=== PATIENT | female | born 1955 | race Caucasian/White ===

== ENCOUNTER 2016-12-11 10:26 | Emergency (ER) | payer MEDICARE, MEDICAID ==
[~2016-12-11] VITALS: Ht 170.1 cm; Wt 104.3 kg
[~2016-12-11 10:26] MED LIST: AMOXIL500 MG PO; ATIVAN0.5 MG PO; BENTYL10 MG PO; CIPRO250 MG PO; DOS PO; FLAGYL500 MG PO; LEVAQUIN750 MG PO; LOMOTIL 0.025 M1 TA1 PO; NORVASC5 MG PO; OXYBUTYNIN CHLOR5 M1 PO; PAXIL20 MG PO; PERCOCET 325 MG1 TA2; PERCOCET 325 MG1 TA7 PO; PRILOSEC OTC20 MG PO; PRILOSEC10 MG PO; PRILOSEC20 M1 PO; ROPINIROLE HYDRO1 MG PO; SYNTHROID,LEVO50 MCG; SYNTHROID,LEVO50 MCG PO; SYNTHROID,LEVO75 MCG; SYNTHROID,LEVO75 MCG PO; Synthroid,Lev150 MCG PO; ULTRAM50 MG PO; VICODIN 5/500 505 MG PO; ZANTAC150 MG PO; ZOFRAN ODT4 MG SL; ZOFRAN4 MG PO; ZOLOFT25 MG PO; Zofran4 MG PO; [UNRECOGNIZED DRUG - OTHER] PO; [UNRECOGNIZED DRUG - OTHER] PO
[2016-12-11 11:27] LABS: BASO % 0.4 % (0.0-1.0); EOS # 0.1 10*3/uL (0.0-0.4); EOS % 1.2 % (1.0-4.0); HEMATOCRIT 44.4 % (37.0-47.0); HEMOGLOBIN 15.2 g/dl (12.0-16.0); LYMPH # 1.5 10*3/uL (1.3-4.4); MEAN CELL VOLUME 96.5 fl (81.0-99.0); MEAN CORPUSCULAR HGB CONC 34.2 g/dl (33.0-37.0); MEAN PLATELET VOLUME 9.1 fl (9.6-12.3); MONO # 0.8 10*3/uL (0.1-1.0); MONO % 8.8 % (3.0-9.0); NEUT # 6.8 10*3/uL (2.3-7.9); NEUT % 73.3 % (47.0-73.0); PLATELET COUNT AUTOMATED 215 10*3/uL (130-400); RED CELL DISTRI WIDTH 12.3 % (0-14.5); WHITE BLOOD COUNT 9.3 10*3/uL (4.8-10.8)
[2016-12-11 11:45] LABS: ALKALINE PHOSPHATASE 108 U/L (45-117); BILIRUBIN, TOTAL 0.8 mg/dl (0.2-1.0); BUN 8 mg/dl (7-24); CARBON DIOXIDE 26 mmol/L (21-32); CHLORIDE 106 mmol/L (98-107); EST GLOM FILT AFRICAN AMERICAN > 60 ml/min; GLUCOSE 91 mg/dL (65-99); POTASSIUM 4.2 mmol/L (3.5-5.1); SGOT/AST 40 IU/L (3-35); SGPT/ALT 53 U/L (12-78); SODIUM 141 mmol/L (136-145); TOTAL PROTEIN 7.7 gm/dL (6.4-8.2)
[2016-12-11] MEDS ORDERED: ZOFRAN ODT4 MG SL (13:37)
== END 2016-12-11 13:39 | disposition home or self-care (01) ==
LOC: ED 10:26
PROVIDERS: Registered Nurse
DX: K52.9 Noninfective gastroenteritis and colitis, unspecified (principal); R53.83 Other fatigue; R53.81 Other malaise; R52 Pain, unspecified; R68.83 Chills (without fever); Z79.899 Other long term (current) drug therapy

== ENCOUNTER 2017-07-22 19:47 | Emergency (ER) | payer MEDICARE, MEDICAID ==
[~2017-07-22] VITALS: Ht 162.5 cm; Wt 136.1 kg
[2017-07-22] MEDS ORDERED: NORCO 5-325 TA1 EACH PO (22:21)
== END 2017-07-22 22:49 | disposition home or self-care (01) ==
LOC: ED 19:47
DX: S82.451A Displaced comminuted fracture of shaft of right fibula, initial encounter for closed fracture (principal); S90.01XA Contusion of right ankle, initial encounter; K21.9 Gastro-esophageal reflux disease without esophagitis; I10 Essential (primary) hypertension; Z90.49 Acquired absence of other specified parts of digestive tract; Z79.899 Other long term (current) drug therapy; W19.XXXA Unspecified fall, initial encounter; Y93.89 Activity, other specified; Y92.008 Other place in unspecified non-institutional (private) residence as the place of occurrence of the external cause; Y99.9 Unspecified external cause status

== ENCOUNTER → 2017-08-06 | Outpatient (CLI) | payer MEDICARE, MEDICAID ==
[~2017-08-06] MED LIST changes: +NORCO 5-325 TA1 EACH PO
[2017-08-06 16:02] LABS: BASO # 0.1 10*3/uL (0.0-0.1); BASO % 0.6 % (0.0-1.0); EOS # 0.2 10*3/uL (0.0-0.4); HEMOGLOBIN 13.8 g/dl (12.0-16.0); LYMPH # 2.8 10*3/uL (1.3-4.4); LYMPH % 32.4 % (27.0-41.0); MEAN CELL VOLUME 99.3 fl (81.0-99.0); MEAN CORPUSCULAR HGB 33.4 pg (27.0-31.0); MEAN CORPUSCULAR HGB CONC 33.7 g/dl (33.0-37.0); MONO # 0.9 10*3/uL (0.1-1.0); NEUT # 4.7 10*3/uL (2.3-7.9); NEUT % 54.8 % (47.0-73.0); PLATELET COUNT AUTOMATED 334 10*3/uL (130-400); RED BLOOD COUNT 4.13 10*6/uL (4.10-5.10); RED CELL DISTRI WIDTH 12.2 % (0-14.5); WHITE BLOOD COUNT 8.6 10*3/uL (4.8-10.8)
[2017-08-06 16:26] LABS: ALBUMIN 3.8 gm/dl (3.1-4.5); ALKALINE PHOSPHATASE 106 U/L (45-117); BUN 11 mg/dl (7-24); CHLORIDE 107 mmol/L (98-107); CREATININE 0.81 mg/dL (0.55-1.02); POTASSIUM 4.2 mmol/L (3.5-5.1); SGOT/AST 53 IU/L (3-35); SGPT/ALT 55 U/L (12-78); SODIUM 142 mmol/L (136-145); TOTAL PROTEIN 7.6 gm/dL (6.4-8.2)
== END | disposition home or self-care (01) ==
LOC: LAB 03:45 → ORTHO 03:45
PROVIDERS: Orthopaedic Surgery
DX: Z01.818 Encounter for other preprocedural examination (principal); I10 Essential (primary) hypertension; S82.831A Other fracture of upper and lower end of right fibula, initial encounter for closed fracture; X58.XXXA Exposure to other specified factors, initial encounter; Y93.89 Activity, other specified; Y92.89 Other specified places as the place of occurrence of the external cause; Y99.8 Other external cause status; Z79.899 Other long term (current) drug therapy

== ENCOUNTER → 2017-08-12 | Outpatient (CLI) | payer MEDICARE, MEDICAID ==
[~2017-08-12] MED LIST changes: +KEFLEX500 M1 PO; -OXYBUTYNIN CHLOR5 M1 PO; +OXYBUTYNIN5 MG PO; +PERCOCET 5-3251 EACH PO
== END | disposition home or self-care (01) ==
LOC: LAB 03:50 → ORTHO 03:50
DX: E03.9 Hypothyroidism, unspecified (principal)

== ENCOUNTER 2017-08-13 00:36 | Inpatient (IN) | payer MEDICARE, MEDICAID ==
[2017-08-13] VITALS (11 sets, daily range): BP systolic 128–149; BP diastolic 54–82
[~2017-08-13] VITALS: Ht 170.1 cm; Wt 111.8 kg
--- NOTE | ~2017-08-13 | O ---
[place], [place] OPERATIVE NOTE NAME: AURORA YA [facility] #: [id number] UNIT #: [id number] ROOM: 516 DOCTOR: ELOY SON DO BIRTHDATE: [birth year] DOS: 08/13/2017 PREOPERATIVE DIAGNOSES: Distal fibula fracture, right ankle with widened mortise. POSTOPERATIVE DIAGNOSES: Distal fibula fracture, right ankle with widened mortise. OPERATIVE PROCEDURE: Open reduction and internal fixation of the distal fibular fracture, right ankle with widened mortise and syndesmotic screw fixation. INDICATIONS: The patient is a 63-year-old female with a history of a fall at her home, suffering a fracture of the right distal fibula with a widened mortise. The date of injury was 07/22/2017 and surgery was postponed due to the condition of the skin at the surgical site with fracture, blisters and an abrasion. The risks and benefits of the procedure were explained to the patient preoperatively. Preoperative labs and x-rays were obtained including a chest x-ray and an EKG. DESCRIPTION OF PROCEDURE: The right lower extremity was marked in the holding room. The splint was removed to evaluate the skin and this was noted to be intact. The patient was taken to the operative suite and placed supine on the operative table. A general anesthetic with endotracheal intubation was performed. The patient received Ancef 2 grams IV piggyback preoperatively. The timeout was performed. The right lower extremity was prepped and draped in the usual orthopedic fashion. The C-arm was utilized to evaluate the fracture site. The extremity was exsanguinated and the tourniquet was inflated to 350 mmHg. The lateral incision was planned and marked with a marking pen. The lateral incision was made sharply over the distal fibula with a scalpel. Subcutaneous tissue was spread down to the level of the periosteum. Under direct visualization, the fracture site was identified and cleared of any hematoma or soft tissue debris. The area was copiously irrigated with normal saline and held with fresh fracture clamps. When the reduction was noted to be adequate, the fixation was attempted with a Zuleika 7-hole tubular plate. The screw holes were drilled and filled, but the cancellous and cortical screws did not seem to be stable within her osteoporotic bone. The decision was made to change to a Synthes fixation system. The area was copiously irrigated with normal saline. The Synthes 7-hole 1/3rd tubular plate was bent to the configuration of the patient's distal fibula. The plate was held in place with a bone clamp and evaluated under C-arm in multiple planes. The reduction was noted to be adequate. The mortise was not completely reduced. The holes within the plate were drilled and filled with cancellous screws after 2 lag screws were placed within the fracture site using partially threaded screws. Positioning was again evaluated under C-arm and the distal fibula was noted to be well reduced with the 1/3rd tubular plate, 2 lag screws and 5 screws within the plate, which included 3 cancellous and 2 cortical screws proximally. With the mortise not completely reduced, a. decision was made to open the lateral side of the ankle. [place], [place] OPERATIVE NOTE NAME: AURORA YA UNIT #: [id number] ROOM: [facility] DOCTOR: ELOY SON DO BIRTHDATE: [birth year] The tourniquet was released as 2 hours had been reached on the tourniquet time. The incision was made about the lateral ankle sharply with a scalpel. Subcutaneous tissue was spread down to the level of the distal lateral malleolus. The flexor tendons were noted to be within the joint and these were retrieved utilizing a curved hemostat. The fracture remained reduced and the mortise was now congruent. The area was copiously irrigated with normal saline and a syndesmotic screw was placed through the plate from lateral to medial after the hole had been drilled. This was measured and a 4.0 fully threaded cancellous screw was placed from lateral to medial at that time. The C-arm was used for further evaluation and the ankle was taken through a range of motion in flexion, extension, inversion and eversion without instability noted at the mortise. All wounds were copiously irrigated with normal saline. The medial ankle was repaired with 2-0 Vicryl at the retinacular level, followed by 4-0 Prolene on the skin. The lateral ankle was closed with 2-0 Vicryl, followed by 3-0 Vicryl and skin nabil. The incisions and the ankle were injected with Marcaine 0.5% plain. Xeroform, 4 x 4s, cast padding, ABDs and a posterior splint were applied, followed by an Ten bandage. The anesthetic was reversed. The patient was extubated and taken to the recovery room in satisfactory condition. Sponge and needle count correct. ESTIMATED BLOOD LOSS: Minimal, less than 50. SPECIMENS: None. DRAINS: None. PACKING: None. ASSISTANTS: Naima. ANESTHESIA: Izquierdo, COMMUNICATIONS OPERATOR, general endotracheal. IMPLANTS: 1. Synthes 7-hole 1/3rd tubular plate. 2. 4.0 fully threaded cancellous screws measuring 55 mm x 1 for the syndesmotic screw, 22 mm x 1, 20 mm x 1, 8 mm x 1. 3. 4.0 partially threaded cancellous screws measuring 28 mm x 2 used for the lag screws. 4. 3.5 cortical fully threaded screws measuring 12 mm x 1 and 16 mm x 1. [place], [place] OPERATIVE NOTE NAME: FELTONAURORA UNIT #: [id number] ROOM: 6 DOCTOR: ELOY SON DO BIRTHDATE: [birth year] ELOY SON DO CM:OPRECORD:OPERATIVE NOTE 1639 [id number] ELOY SON DO 08/29/17 1751 interface
[~2017-08-13 00:36] MED LIST changes: -KEFLEX500 M1 PO; -PERCOCET 5-3251 EACH PO
[2017-08-13] MEDS ORDERED: PERCOCET 5-3251 EACH PO (12:10)
[2017-08-13] MEDS ORDERED: ZOFRAN4 MG PO (12:11)
[2017-08-13 15:28] LABS: HEMOGLOBIN 13.9 g/dl (12.0-16.0); MEAN CELL VOLUME 101.2 fl (81.0-99.0); MEAN CORPUSCULAR HGB 33.5 pg (27.0-31.0); MEAN CORPUSCULAR HGB CONC 33.1 g/dl (33.0-37.0); MEAN PLATELET VOLUME 9.2 fl (9.6-12.3); PLATELET COUNT AUTOMATED 312 10*3/uL (130-400); RED BLOOD COUNT 4.15 10*6/uL (4.10-5.10); RED CELL DISTRI WIDTH 12.2 % (0-14.5); WHITE BLOOD COUNT 14.4 10*3/uL (4.8-10.8)
[2017-08-13 15:43] LABS: PLATELET SUFFICIENCY NORMAL (NORMAL); TOTAL CELLS COUNTED 100 #CELLS
[2017-08-13 15:52] LABS: ALBUMIN 3.6 gm/dl (3.1-4.5); ALKALINE PHOSPHATASE 98 U/L (45-117); BUN 11 mg/dl (7-24); CHLORIDE 105 mmol/L (98-107); CREATININE 0.96 mg/dL (0.55-1.02); POTASSIUM 3.9 mmol/L (3.5-5.1); SGOT/AST 44 IU/L (3-35); SGPT/ALT 47 U/L (12-78); SODIUM 141 mmol/L (136-145); TOTAL PROTEIN 7.3 gm/dL (6.4-8.2)
[2017-08-13] MEDS ORDERED: KEFLEX500 M1 PO (16:56)
[2017-08-14] VITALS: BP 130/50
[2017-08-14 06:34] LABS: BASO % 0.1 % (0.0-1.0); EOS % 0.1 % (1.0-4.0); HEMATOCRIT 37.2 % (37.0-47.0); HEMOGLOBIN 12.6 g/dl (12.0-16.0); LYMPH # 2.6 10*3/uL (1.3-4.4); LYMPH % 18.1 % (27.0-41.0); MEAN CELL VOLUME 100.5 fl (81.0-99.0); MEAN CORPUSCULAR HGB 34.1 pg (27.0-31.0); MEAN CORPUSCULAR HGB CONC 33.9 g/dl (33.0-37.0); MEAN PLATELET VOLUME 9.1 fl (9.6-12.3); MONO # 1.3 10*3/uL (0.1-1.0); MONO % 9.1 % (3.0-9.0); NEUT # 10.4 10*3/uL (2.3-7.9); NEUT % 72.1 % (47.0-73.0); PLATELET COUNT AUTOMATED 302 10*3/uL (130-400); RED CELL DISTRI WIDTH 12.2 % (0-14.5); WHITE BLOOD COUNT 14.4 10*3/uL (4.8-10.8)
[2017-08-14 07:07] LABS: ALBUMIN 3.3 gm/dl (3.1-4.5); BUN 13 mg/dl (7-24); CHLORIDE 104 mmol/L (98-107); CHOLESTEROL 155 mg/dL (<200); CREATININE 0.82 mg/dL (0.55-1.02); PHOSPHOROUS 2.7 mg/dL (2.5-4.9); POTASSIUM 4.1 mmol/L (3.5-5.1); SGOT/AST 27 IU/L (3-35); SGPT/ALT 40 U/L (12-78); SODIUM 139 mmol/L (136-145); TRIGLYCERIDES 105 mg/dl (<150); VLDL CHOLESTEROL 21 mg/dL (6-40)
[2017-08-14 07:15] LABS: ALKALINE PHOSPHATASE 89 U/L (45-117); FREE T4 1.47 ng/dl (0.76-1.46); HDL CHOLESTEROL 45 mg/dl (40-60); LDL CHOLESTEROL 89 mg/dL (9-159)
[2017-08-14 07:46] LABS: VITAMIN D, 25-HYDROXY 13.5 ng/mL (30-100)
[2017-08-14 08:00] VITALS: BP 130/59
[2017-08-14 12:00] VITALS: BP 131/57
[2017-08-14 16:00] VITALS: BP 125/56
[2017-08-14 20:00] VITALS: BP 130/59
[2017-08-15] VITALS: BP 145/62
[2017-08-15 06:40] LABS: BASO % 0.5 % (0.0-1.0); EOS % 0.5 % (1.0-4.0); HEMOGLOBIN 12.1 g/dl (12.0-16.0); LYMPH # 3.1 10*3/uL (1.3-4.4); LYMPH % 35.9 % (27.0-41.0); MEAN CELL VOLUME 102.6 fl (81.0-99.0); MEAN CORPUSCULAR HGB 34.5 pg (27.0-31.0); MEAN CORPUSCULAR HGB CONC 33.6 g/dl (33.0-37.0); MEAN PLATELET VOLUME 9.1 fl (9.6-12.3); MONO # 0.8 10*3/uL (0.1-1.0); MONO % 9.4 % (3.0-9.0); NEUT # 4.6 10*3/uL (2.3-7.9); NEUT % 53.5 % (47.0-73.0); PLATELET COUNT AUTOMATED 239 10*3/uL (130-400); RED BLOOD COUNT 3.51 10*6/uL (4.10-5.10); RED CELL DISTRI WIDTH 12.5 % (0-14.5); WHITE BLOOD COUNT 8.6 10*3/uL (4.8-10.8)
[2017-08-15 07:13] LABS: ALBUMIN 3.3 gm/dl (3.1-4.5); ALKALINE PHOSPHATASE 85 U/L (45-117); BUN 13 mg/dl (7-24); CHLORIDE 105 mmol/L (98-107); SGOT/AST 25 IU/L (3-35); SGPT/ALT 36 U/L (12-78); SODIUM 141 mmol/L (136-145)
[2017-08-15 08:00] VITALS: BP 138/65
[2017-08-15 12:00] VITALS: BP 131/67
[2017-08-15 16:00] VITALS: BP 109/75
[2017-08-15 20:00] VITALS: BP 157/64
[2017-08-16] VITALS: BP 151/71
[2017-08-16 07:08] LABS: BASO # 0.1 10*3/uL (0.0-0.1); BASO % 0.8 % (0.0-1.0); EOS # 0.1 10*3/uL (0.0-0.4); EOS % 1.5 % (1.0-4.0); HEMATOCRIT 36.1 % (37.0-47.0); HEMOGLOBIN 12.1 g/dl (12.0-16.0); LYMPH # 2.9 10*3/uL (1.3-4.4); LYMPH % 44.4 % (27.0-41.0); MEAN CORPUSCULAR HGB 34.2 pg (27.0-31.0); MEAN CORPUSCULAR HGB CONC 33.5 g/dl (33.0-37.0); MEAN PLATELET VOLUME 9.6 fl (9.6-12.3); MONO # 0.7 10*3/uL (0.1-1.0); MONO % 10.9 % (3.0-9.0); NEUT # 2.7 10*3/uL (2.3-7.9); NEUT % 42.1 % (47.0-73.0); PLATELET COUNT AUTOMATED 249 10*3/uL (130-400); RED BLOOD COUNT 3.54 10*6/uL (4.10-5.10); WHITE BLOOD COUNT 6.5 10*3/uL (4.8-10.8)
[2017-08-16 08:08] LABS: BUN 12 mg/dl (7-24); CHLORIDE 103 mmol/L (98-107); CREATININE 0.74 mg/dL (0.55-1.02); POTASSIUM 3.8 mmol/L (3.5-5.1); SODIUM 140 mmol/L (136-145)
[2017-08-16 08:44] VITALS: BP 136/54
[2017-08-16] MEDS ORDERED: VITAMIN D-32000 UNIT PO (11:30)
[2017-08-16 12:14] VITALS: BP 138/67
== END 2017-08-16 14:05 | disposition other institution (70) | DRG 493 ==
LOC: SDC 00:36 → 5E 13:41
PROVIDERS: Internal Medicine; Internal Medicine Nephrology
PROC: 0QSJ04Z Reposition Right Fibula with Internal Fixation Device, Open Approach (ICD-10-PCS; principal; 2017-08-13)
DX: S82.831A Other fracture of upper and lower end of right fibula, initial encounter for closed fracture (principal); R65.10 Systemic inflammatory response syndrome (SIRS) of non-infectious origin without acute organ dysfunction; Z96.7 Presence of other bone and tendon implants; S90.511A Abrasion, right ankle, initial encounter; W00.2XXA Other fall from one level to another due to ice and snow, initial encounter; G25.81 Restless legs syndrome; E66.9 Obesity, unspecified; K21.9 Gastro-esophageal reflux disease without esophagitis; F41.9 Anxiety disorder, unspecified; S90.521A Blister (nonthermal), right ankle, initial encounter; R73.9 Hyperglycemia, unspecified; F32.9 Major depressive disorder, single episode, unspecified; I10 Essential (primary) hypertension; E03.9 Hypothyroidism, unspecified; Z90.49 Acquired absence of other specified parts of digestive tract; Z68.38 Body mass index [BMI] 38.0-38.9, adult; Z87.81 Personal history of (healed) traumatic fracture; Z79.899 Other long term (current) drug therapy; Y93.89 Activity, other specified; Y99.8 Other external cause status; Y92.89 Other specified places as the place of occurrence of the external cause

== ENCOUNTER → 2017-09-09 | Outpatient (CLI) | payer MEDICARE, MEDICAID ==
[~2017-09-09] MED LIST changes: +KEFLEX500 M1 PO; +PERCOCET 5-3251 EACH PO; +VITAMIN D-32000 UNIT PO
== END | disposition home or self-care (01) ==
LOC: ORTHO 02:57
DX: S82.891D Other fracture of right lower leg, subsequent encounter for closed fracture with routine healing (principal); Z96.661 Presence of right artificial ankle joint

== ENCOUNTER → 2017-10-07 | Outpatient (CLI) | payer MEDICARE, MEDICAID ==
[2017-10-07 12:45] LABS: BASO # 0.1 10*3/uL (0.0-0.1); BASO % 0.7 % (0.0-1.0); EOS # 0.3 10*3/uL (0.0-0.4); EOS % 3.6 % (1.0-4.0); HEMATOCRIT 42.1 % (37.0-47.0); HEMOGLOBIN 14.3 g/dl (12.0-16.0); LYMPH # 3.3 10*3/uL (1.3-4.4); LYMPH % 40.7 % (27.0-41.0); MEAN CELL VOLUME 97.2 fl (81.0-99.0); MONO # 0.8 10*3/uL (0.1-1.0); MONO % 9.8 % (3.0-9.0); NEUT # 3.6 10*3/uL (2.3-7.9); PLATELET COUNT AUTOMATED 264 10*3/uL (130-400); RED BLOOD COUNT 4.33 10*6/uL (4.10-5.10); RED CELL DISTRI WIDTH 12.1 % (0-14.5)
[2017-10-07 13:13] LABS: ALKALINE PHOSPHATASE 104 U/L (45-117); BUN 15 mg/dl (7-24); CHLORIDE 103 mmol/L (98-107); CREATININE 0.64 mg/dL (0.55-1.02); FREE T4 1.15 ng/dl (0.76-1.46); SGOT/AST 58 IU/L (3-35); SGPT/ALT 66 U/L (12-78); SODIUM 141 mmol/L (136-145); TOTAL PROTEIN 7.6 gm/dL (6.4-8.2)
[2017-10-07 13:19] LABS: THYROID STIM HORMONE (HS) 0.841 uIU/ml (0.358-4.75)
== END | disposition home or self-care (01) ==
LOC: LAB 07:56 → ORTHO 07:56
PROVIDERS: Nurse Practitioner Family
DX: M81.0 Age-related osteoporosis without current pathological fracture (principal); I10 Essential (primary) hypertension; E55.9 Vitamin D deficiency, unspecified; Z79.899 Other long term (current) drug therapy; Z98.890 Other specified postprocedural states

== ENCOUNTER → 2017-11-08 | Outpatient (CLI) | payer MEDICARE, MEDICAID | END | disposition home or self-care (01) | LOC: ORTHO 01:36 | DX: Z47.89 Encounter for other orthopedic aftercare (principal); S82.891D Other fracture of right lower leg, subsequent encounter for closed fracture with routine healing; X58.XXXD Exposure to other specified factors, subsequent encounter; M81.0 Age-related osteoporosis without current pathological fracture ==

== ENCOUNTER → 2017-11-28 | Outpatient (CLI) | payer MEDICARE, MEDICAID ==
[~2017-11-28] MED LIST changes: +Percocet 325 MG1 TAB PO; +Zofran4 MG SL
[2017-11-28 12:17] LABS: BASO # 0.1 10*3/uL (0.0-0.1); BASO % 0.7 % (0.0-1.0); EOS # 0.1 10*3/uL (0.0-0.4); EOS % 1.6 % (1.0-4.0); HEMATOCRIT 42.7 % (37.0-47.0); HEMOGLOBIN 14.7 g/dl (12.0-16.0); LYMPH # 3.2 10*3/uL (1.3-4.4); LYMPH % 45.9 % (27.0-41.0); MEAN CELL VOLUME 94.7 fl (81.0-99.0); MEAN CORPUSCULAR HGB 32.6 pg (27.0-31.0); MEAN CORPUSCULAR HGB CONC 34.4 g/dl (33.0-37.0); MONO # 0.6 10*3/uL (0.1-1.0); MONO % 8.8 % (3.0-9.0); NEUT % 42.7 % (47.0-73.0); PLATELET COUNT AUTOMATED 272 10*3/uL (130-400); RED BLOOD COUNT 4.51 10*6/uL (4.10-5.10); RED CELL DISTRI WIDTH 12.1 % (0-14.5)
[2017-11-28 12:46] LABS: BUN 13 mg/dl (7-24); CHLORIDE 107 mmol/L (98-107); CREATININE 0.79 mg/dL (0.55-1.02); POTASSIUM 3.6 mmol/L (3.5-5.1); SGOT/AST 34 IU/L (3-35); SGPT/ALT 51 U/L (12-78); SODIUM 140 mmol/L (136-145)
[2017-11-28 12:55] LABS: ALKALINE PHOSPHATASE 136 U/L (45-117); THYROID STIM HORMONE (HS) 0.591 uIU/ml (0.358-4.75); TOTAL PROTEIN 7.9 gm/dL (6.4-8.2)
== END | disposition home or self-care (01) ==
LOC: LAB 10:40
PROVIDERS: Orthopaedic Surgery
DX: Z01.818 Encounter for other preprocedural examination (principal); S82.491A Other fracture of shaft of right fibula, initial encounter for closed fracture; X58.XXXA Exposure to other specified factors, initial encounter; Y93.89 Activity, other specified; Y92.89 Other specified places as the place of occurrence of the external cause; Y99.8 Other external cause status; Z79.899 Other long term (current) drug therapy

== ENCOUNTER → 2017-12-05 | Day surgery (SDC) | payer MEDICARE, MEDICAID ==
[~2017-12-05] VITALS: Ht 170.1 cm; Wt 104.3 kg
--- NOTE | ~2017-12-05 | O ---
[place], [place] OPERATIVE NOTE NAME: AURORA YA [facility] #: [id number] UNIT #: [id number] ROOM: DOCTOR: ELOY FLORES DO BIRTHDATE: [birth year] DOS: 12/05/2017 PREPROCEDURE DIAGNOSIS: Right ankle retained hardware. POSTPROCEDURE DIAGNOSIS: Right ankle retained hardware. OPERATIVE PROCEDURE: Right ankle removal of retained hardware syndesmotic screw. SURGEON: Eloy Flores DO RECEIVING TEAM MEMBER: Basilio. ANESTHESIA: DeenaZULMA rivera, general LMA intubation. INDICATIONS: The patient is a 62-year-old female with a history of a right ankle fracture and widened mortise. The patient underwent open reduction and internal fixation approximately 4 months ago. She is scheduled today for removal of the syndesmotic screw. DESCRIPTION OF PROCEDURE: The right ankle was marked in the holding room. The patient was brought to the operative suite. The patient was placed supine on the operative table. A general anesthetic with LMA intubation was performed. Timeout was performed. The patient received Ancef 2 g IV piggyback. Right ankle was prepped and draped in the usual orthopedic fashion. C-arm was utilized to evaluate the hardware and position of the syndesmotic screw. An incision was planned over the syndesmotic screw head at the lateral ankle. The area was injected with Marcaine 0.5% with epinephrine. A 1.5 cm incision was made over the syndesmotic screw. Subcutaneous tissue was spread down to the level of the fascia. The fascia was divided with a Charlemont elevator. The screw was identified and irrigated with normal saline. The universal screw removal set was utilized to remove the syndesmotic screw, which crossed the syndesmotic joint. When this was completed, the removal was confirmed by x-ray. The area was curetted. The area was copiously irrigated with normal saline. The wound was closed in a layered fashion with 2-0 Vicryl followed by 3-0 Prolene. Xeroform, 4 x 4's, cast padding, ABD were used to complete the dressing followed by an Ten bandage. The anesthetic was reversed. The patient was extubated and taken to recovery room in satisfactory condition. COUNTS: Sponge and needle count correct. ESTIMATED BLOOD LOSS: 2 mL. DRAINS: None. PACKING: None. COMPLICATIONS: None. [place], [place] OPERATIVE NOTE NAME: AURORA YA UNIT #: [id number] ROOM: DOCTOR: ELOY FLORES DO BIRTHDATE: [birth year] SPECIMEN: One single screw. ELOY FLORES DO CM:OPRECORD:OPERATIVE NOTE [id number] ELOY FLORES DO 12/05/17 1338 interface
[2017-12-05 09:26] VITALS: BP 106/42
[2017-12-05 10:05] VITALS: BP 123/67
[2017-12-05 10:20] VITALS: BP 131/64
[2017-12-05 10:35] VITALS: BP 120/61
== END | disposition home or self-care (01) ==
LOC: SDC 11-28 11:00
DX: T84.84XA Pain due to internal orthopedic prosthetic devices, implants and grafts, initial encounter (principal); M25.571 Pain in right ankle and joints of right foot; I10 Essential (primary) hypertension; E03.9 Hypothyroidism, unspecified; K21.9 Gastro-esophageal reflux disease without esophagitis; F41.9 Anxiety disorder, unspecified; F32.9 Major depressive disorder, single episode, unspecified; E66.09 Other obesity due to excess calories; Z87.19 Personal history of other diseases of the digestive system; Z98.890 Other specified postprocedural states; Z79.899 Other long term (current) drug therapy; Z68.36 Body mass index [BMI] 36.0-36.9, adult; Z83.3 Family history of diabetes mellitus; Z82.49 Family history of ischemic heart disease and other diseases of the circulatory system; Y83.8 Other surgical procedures as the cause of abnormal reaction of the patient, or of later complication, without mention of misadventure at the time of the procedure

== ENCOUNTER 2019-03-02 09:17 | Emergency (ER) | payer OTHER ==
[~2019-03-02] VITALS: Ht 170.1 cm; Wt 104.3 kg
[2019-03-02 10:10] LABS: BILIRUBIN NEGATIVE (NEGATIVE); BLOOD NEGATIVE (NEGATIVE); CLARITY SL CLOUDY (CLEAR); COLOR YELLOW (YELLOW); GLUCOSE NEGATIVE (NEGATIVE); KETONE NEGATIVE (NEGATIVE); LEUKO ESTERASE 1+ (NEGATIVE); NITRITE NEGATIVE (NEGATIVE); SPECIFIC GRAVITY 1.025 (1.005-1.030)
[2019-03-02 10:19] LABS: BACTERIA 1+; EPITHELIAL CELLS 16-20
[2019-03-02 10:49] LABS: BASO % 0.6 % (0.0-1.0); EOS # 0.1 10*3/uL (0.0-0.4); EOS % 2.3 % (1.0-4.0); HEMATOCRIT 40.1 % (37.0-47.0); LYMPH # 2.1 10*3/uL (1.3-4.4); LYMPH % 40.7 % (27.0-41.0); MEAN CELL VOLUME 99.8 fl (81.0-99.0); MEAN CORPUSCULAR HGB 34.8 pg (27.0-31.0); MEAN CORPUSCULAR HGB CONC 34.9 g/dl (33.0-37.0); MEAN PLATELET VOLUME 9.3 fl (9.6-12.3); MONO # 0.5 10*3/uL (0.1-1.0); MONO % 9.3 % (3.0-9.0); NEUT # 2.4 10*3/uL (2.3-7.9); NEUT % 46.9 % (47.0-73.0); PLATELET COUNT AUTOMATED 249 10*3/uL (130-400); RED BLOOD COUNT 4.02 10*6/uL (4.10-5.10); RED CELL DISTRI WIDTH 12.7 % (0-14.5); WHITE BLOOD COUNT 5.2 10*3/uL (4.8-10.8)
[2019-03-02 11:03] LABS: ALBUMIN 3.6 gm/dl (3.1-4.5); ALKALINE PHOSPHATASE 105 U/L (45-117); BUN 15 mg/dl (7-24); CHLORIDE 109 mmol/L (98-107); CREATININE 0.83 mg/dL (0.55-1.02); LIPASE 151 U/L (73-393); POTASSIUM 3.8 mmol/L (3.5-5.1); SGOT/AST 26 IU/L (3-35); SGPT/ALT 42 U/L (12-78); SODIUM 141 mmol/L (136-145); TOTAL PROTEIN 7.2 gm/dL (6.4-8.2)
[2019-03-02] MEDS ORDERED: DICYCLOMINE HCL20 MG PO (12:58)
== END 2019-03-02 13:04 | disposition home or self-care (01) ==
LOC: ED 09:17
PROVIDERS: Physician Assistant
DX: K58.9 Irritable bowel syndrome, unspecified (principal); R10.84 Generalized abdominal pain; Z90.49 Acquired absence of other specified parts of digestive tract; Z79.899 Other long term (current) drug therapy

== ENCOUNTER 2019-05-24 08:35 | Inpatient (IN) | payer OTHER ==
[~2019-05-24] VITALS: Ht 170.1 cm; Wt 103.0 kg
[~2019-05-24 08:35] MED LIST changes: +DICYCLOMINE HCL20 MG PO
[2019-05-24 08:42] VITALS: BP 168/71
[2019-05-24 09:33] LABS: BASO % 0.2 % (0.0-1.0); EOS % 0.1 % (1.0-4.0); HEMATOCRIT 43.2 % (37.0-47.0); HEMOGLOBIN 15.5 g/dl (12.0-16.0); LYMPH # 1.5 10*3/uL (1.3-4.4); MEAN CORPUSCULAR HGB 34.4 pg (27.0-31.0); MEAN CORPUSCULAR HGB CONC 35.9 g/dl (33.0-37.0); MEAN PLATELET VOLUME 9.6 fl (9.6-12.3); MONO # 0.5 10*3/uL (0.1-1.0); MONO % 5.8 % (3.0-9.0); NEUT # 6.7 10*3/uL (2.3-7.9); NEUT % 76.6 % (47.0-73.0); PLATELET COUNT AUTOMATED 286 10*3/uL (130-400); RED CELL DISTRI WIDTH 12.1 % (0-14.5); WHITE BLOOD COUNT 8.8 10*3/uL (4.8-10.8)
[2019-05-24 09:43] LABS: ACT PARTIAL THROMBO TIME 25.6 SECONDS (20.0-32.1)
[2019-05-24 09:53] LABS: ALBUMIN 4.1 gm/dl (3.1-4.5); ALKALINE PHOSPHATASE 120 U/L (45-117); BUN 13 mg/dl (7-24); CHLORIDE 108 mmol/L (98-107); CREATININE 0.88 mg/dL (0.55-1.02); LIPASE 119 U/L (73-393); POTASSIUM 4.1 mmol/L (3.5-5.1); SGOT/AST 45 IU/L (3-35); SGPT/ALT 51 U/L (12-78); SODIUM 141 mmol/L (136-145); TOTAL PROTEIN 8.4 gm/dL (6.4-8.2)
[2019-05-24 09:55] LABS: TROPONIN I < 0.015 ng/ml (<0.045)
--- NOTE | 2019-05-24 09:59 | NUR ---
DR NOBLE AWARE OF CRITICAL LACTIC ACID OF 2.1.
[2019-05-24 10:07] VITALS: BP 190/64
--- NOTE | 2019-05-24 10:15 | NUR ---
PT UP TO BS AND UNABLE TO GIVE URINE SAMPLE AT THIS TIME.
[2019-05-24 11:38] LABS: BILIRUBIN NEGATIVE (NEGATIVE); BLOOD NEGATIVE (NEGATIVE); CLARITY CLEAR (CLEAR); COLOR YELLOW (YELLOW); GLUCOSE NEGATIVE (NEGATIVE); KETONE TRACE (NEGATIVE); LEUKO ESTERASE NEGATIVE (NEGATIVE); NITRITE NEGATIVE (NEGATIVE); PH 8.5 (5.0-9.0); SPECIFIC GRAVITY 1.015 (1.005-1.030); UROBILINOGEN 0.2 E.U./dl (0.2-1.0)
[2019-05-24 11:57] LABS: BACTERIA 2+; RBC 0-2 rbc/hpf (0-2)
[2019-05-24 12:30] VITALS: BP 170/68
--- NOTE | 2019-05-24 13:30 | NUR ---
A 64, admitted to , under the services of SMILEY Nunez DO with a diagnosis of HEADACHE, N/V . Chief complaint is N/V Patient arrived via bed from ER. Monitor applied. Initial assessment completed. Vital signs taken and recorded. SMILEY NUNEZ DO notified of admission to the unit. Orders received. See assessment for past medical history, medications and allergies. Patient and/or family oriented to unit. [facility] visitation policy reviewed. Clothing/patient valuable form completed. CANDI VALADEZ
[2019-05-24] MEDS ORDERED: ACID REDUCER 1150 MG PO (13:31)
[2019-05-24] MEDS ORDERED: ZOLOFT100 MG PO (13:33)
[2019-05-24 13:49] VITALS: BP 155/98
--- NOTE | 2019-05-24 15:19 | NUR ---
MEDS REVIEWED AND UPDATED PER POLICY.
[2019-05-24 16:00] VITALS: BP 149/79
--- NOTE | 2019-05-24 18:02 | NUR ---
PT GIVEN TYLENOL PER PRN ORDER FOR C/O HEADACHE. WILL MONITOR EFFECTIVENESS.
--- NOTE | 2019-05-24 19:35 | NUR ---
REPORT RECEIVED FROM PAPITO HANLEY. PT AWAKE AT THIS TIME. VOICES NO COMPLAINTS. IV FLUIDS INFUSING INTO IV WITHOUT DIFFICULTY. CALL LIGHT IN REACH.
[2019-05-24 20:00] VITALS: BP 150/78
--- NOTE | 2019-05-24 20:00 | NUR ---
PER PT, TYLENOL GIVEN FOR HEADACHE WAS EFFECTIVE.
--- NOTE | 2019-05-24 22:00 | NUR ---
PT WATCHING TV AT THIS TIME. CALL LIGHT IN REACH
[2019-05-25] VITALS: BP 161/86
--- NOTE | 2019-05-25 02:00 | NUR ---
PT SLEEPING AT THIS TIME. IV FLUIDS INFUSING WITHOUT DIFFICULTY. CALL LIGHT IN REACH
[2019-05-25 07:03] LABS: BASO % 0.3 % (0.0-1.0); EOS # 0.1 10*3/uL (0.0-0.4); EOS % 0.8 % (1.0-4.0); HEMATOCRIT 41.7 % (37.0-47.0); LYMPH # 2.8 10*3/uL (1.3-4.4); LYMPH % 32.2 % (27.0-41.0); MEAN CORPUSCULAR HGB 33.3 pg (27.0-31.0); MEAN CORPUSCULAR HGB CONC 33.6 g/dl (33.0-37.0); MEAN PLATELET VOLUME 9.6 fl (9.6-12.3); MONO # 0.6 10*3/uL (0.1-1.0); MONO % 7.2 % (3.0-9.0); NEUT # 5.1 10*3/uL (2.3-7.9); NEUT % 59.3 % (47.0-73.0); PLATELET COUNT AUTOMATED 278 10*3/uL (130-400); RED BLOOD COUNT 4.21 10*6/uL (4.10-5.10); RED CELL DISTRI WIDTH 12.5 % (0-14.5); WHITE BLOOD COUNT 8.6 10*3/uL (4.8-10.8)
[2019-05-25 07:26] LABS: ACT PARTIAL THROMBO TIME 26.5 SECONDS (20.0-32.1)
[2019-05-25 07:28] LABS: ALBUMIN 3.7 gm/dl (3.1-4.5); BUN 12 mg/dl (7-24); CHLORIDE 110 mmol/L (98-107); CHOLESTEROL 180 mg/dL (<200); CREATININE 0.79 mg/dL (0.55-1.02); HDL CHOLESTEROL 36 mg/dl (40-60); LDL CHOLESTEROL 111 mg/dL (9-159); PHOSPHOROUS 2.6 mg/dL (2.5-4.9); POTASSIUM 3.4 mmol/L (3.5-5.1); SGOT/AST 39 IU/L (3-35); SGPT/ALT 50 U/L (12-78); SODIUM 141 mmol/L (136-145); TOTAL PROTEIN 7.2 gm/dL (6.4-8.2); TRIGLYCERIDES 164 mg/dl (<150); VLDL CHOLESTEROL 33 mg/dL (6-40)
[2019-05-25 07:34] LABS: ALKALINE PHOSPHATASE 98 U/L (45-117); FREE T4 1.03 ng/dl (0.76-1.46)
[2019-05-25 07:35] VITALS: BP 144/74; BP 145/75
--- NOTE | 2019-05-25 08:14 | NUR ---
PT SITTING UP COMFORTABLY IN BED, PT SAID "I'M READY TO GO HOME" WILL CONTINUE TO MONITOR, HAILY SCOTT SPNRCC
[2019-05-25 08:32] LABS: VITAMIN D, 25-HYDROXY 25.2 ng/mL (30-100)
--- NOTE | 2019-05-25 08:50 | NUR ---
PT RESTING IN BED WITH HOB ELEVATED. RESP-EASY AND REGULAR. IVF INFUSING WITH NO PROBLEM. LUNGS DIMINISHED T/O. STUDENT NURSE WT PT TODAY ALSO. CALL LIGHT IN REACH. WILL CON'T TO MONITOR.
--- NOTE | 2019-05-25 09:00 | NUR ---
Wheel Truer in to talk to patient. Patient states lives at home alone in an apartment complex with her friends checking in on her. There are 0 steps in the home. Physician: Ivett Steiner [facility]acy: [facility] Home health services: none Patient's level of ADLs: INDEPENDENT Patient has working utilities: yes DME: none Follow-up physician's appointment after d/c: will be made by the hospitalist nurse director upon discharge Does patient want to access PORTAL?: no Discharge plan discussed with patient. She lives at home alone an apartment complex with her friend checking in on her. She is independent in her ADLs and ambulation. Discussed home health care services and she denies any home needs at this time. When medically stable she will be discharged to home. N/V, clear liquids, BP 144/74. She states her friend will provide transportation on discharge. AMY SHIN
--- NOTE | 2019-05-25 09:58 | NUR ---
PT PLEASANT UP IN BED. HAILY SCOTT SPNRCC
[2019-05-25 11:44] VITALS: BP 136/74
[2019-05-25] MEDS ORDERED: VITAMIN D-32000 UNI1 PO (11:56)
[2019-05-25] MEDS ORDERED: VITAMIN B1250 MCG PO (11:56)
[2019-05-25] MEDS ORDERED: CIPRO500 MG PO (11:56)
--- NOTE | 2019-05-25 12:06 | NUR ---
PT DIET WAS CHANGED PT TOLERATED SOFT DIET WELL. HAILY HERNANDEZ
--- NOTE | 2019-05-25 13:30 | NUR ---
PT PLEASANT AND UP IN BED. HAILY SCOTT SPNRCC
--- NOTE | 2019-05-25 14:04 | NUR ---
Discharge instructions reviewed with patient/family. Patient receptive and verbalizes understanding. Follow-up care arranged. Written instructions given to patient/family. HEPLOCK REMOVED 2X2 APPLIED. MONITOR REMOVED. ADRIAN DE LA CRUZ
--- NOTE | 2019-05-25 14:29 | NUR ---
[facility] PER HER REQUEST. SHE WILL BE PAYING FOR CAB.
--- NOTE | 2019-05-25 14:31 | NUR ---
PT AMBULATORY OFF THE FLOOR FOR DISCHARGE.
== END 2019-05-25 14:31 | disposition home or self-care (01) | DRG 392 ==
LOC: ED 08:35 → 4E 12:32 → EDHOLD 12:32 → 4E 12:48
PROVIDERS: Emergency Medicine; Internal Medicine; ADMIT Family Medicine
DX: A08.4 Viral intestinal infection, unspecified (principal); E87.2 Acidosis; I16.1 Hypertensive emergency; E87.8 Other disorders of electrolyte and fluid balance, not elsewhere classified; R73.9 Hyperglycemia, unspecified; E83.41 Hypermagnesemia; E80.6 Other disorders of bilirubin metabolism; K21.9 Gastro-esophageal reflux disease without esophagitis; E03.9 Hypothyroidism, unspecified; G25.81 Restless legs syndrome; E66.9 Obesity, unspecified; K58.9 Irritable bowel syndrome, unspecified; R82.71 Bacteriuria; I10 Essential (primary) hypertension; F32.9 Major depressive disorder, single episode, unspecified; F41.9 Anxiety disorder, unspecified; Z90.49 Acquired absence of other specified parts of digestive tract; Z83.3 Family history of diabetes mellitus; Z82.49 Family history of ischemic heart disease and other diseases of the circulatory system; Z79.899 Other long term (current) drug therapy; Z68.35 Body mass index [BMI] 35.0-35.9, adult

== ENCOUNTER 2020-11-19 03:22 | Emergency (ER) | payer OTHER ==
[~2020-11-19] VITALS: Ht 170.1 cm; Wt 104.3 kg
[~2020-11-19 03:22] MED LIST changes: +ACID REDUCER 1150 MG PO; +CIPRO500 MG PO; +VITAMIN B1250 MCG PO; +VITAMIN D-32000 UNI1 PO; +ZOLOFT100 MG PO
[2020-11-19 04:10] LABS: BILIRUBIN Negative (Negative); BLOOD Negative (Negative); CLARITY Clear (Clear); COLOR Yellow (Yellow); GLUCOSE Negative (Negative); KETONE Negative (Negative); LEUKO ESTERASE 1+ (Negative); NITRITE Negative (Negative); SPECIFIC GRAVITY 1.025 (1.001-1.030)
[2020-11-19 04:17] LABS: PH >= 9.0 (4.5-8.0)
[2020-11-19 04:34] LABS: BACTERIA 1+
[2020-11-19] MEDS ORDERED: CIPRO500 MG PO (05:01)
== END 2020-11-19 05:19 | disposition home or self-care (01) ==
LOC: ED 03:22
PROVIDERS: Internal Medicine
DX: N39.0 Urinary tract infection, site not specified (principal); Z79.2 Long term (current) use of antibiotics; Z79.899 Other long term (current) drug therapy; Z90.49 Acquired absence of other specified parts of digestive tract; Z90.89 Acquired absence of other organs

== ENCOUNTER 2021-07-25 09:46 | Emergency (ER) | payer OTHER ==
[~2021-07-25] VITALS: Ht 170.1 cm; Wt 104.3 kg
== END 2021-07-25 13:45 | disposition home or self-care (01) ==
LOC: ED 09:46
DX: S29.9XXA Unspecified injury of thorax, initial encounter (principal); S39.92XA Unspecified injury of lower back, initial encounter; K21.9 Gastro-esophageal reflux disease without esophagitis; I10 Essential (primary) hypertension; E03.9 Hypothyroidism, unspecified; E66.9 Obesity, unspecified; Z79.899 Other long term (current) drug therapy; Z90.49 Acquired absence of other specified parts of digestive tract; Z90.89 Acquired absence of other organs; Z98.890 Other specified postprocedural states; W00.0XXA Fall on same level due to ice and snow, initial encounter; Y93.89 Activity, other specified; Y92.89 Other specified places as the place of occurrence of the external cause; Y99.8 Other external cause status

== ENCOUNTER 2022-11-27 08:56 | Emergency (ER) | payer OTHER ==
[~2022-11-27] VITALS: Wt 104.3 kg
[2022-11-27 09:40] LABS: BASO # 0.1 10*3/uL (0.0-0.1); BASO % 0.8 % (0.0-1.0); EOS # 0.2 10*3/uL (0.0-0.4); HEMATOCRIT 44.1 % (37.0-47.0); LYMPH # 2.3 10*3/uL (1.3-4.4); LYMPH % 38.3 % (27.0-41.0); MEAN CELL VOLUME 99.1 fl (81.0-99.0); MEAN CORPUSCULAR HGB 34.2 pg (27.0-31.0); MEAN CORPUSCULAR HGB CONC 34.5 g/dl (33.0-37.0); MEAN PLATELET VOLUME 9.1 fl (9.6-12.3); MONO # 0.6 10*3/uL (0.1-1.0); MONO % 9.2 % (3.0-9.0); NEUT # 2.9 10*3/uL (2.3-7.9); NEUT % 48.7 % (47.0-73.0); PLATELET COUNT AUTOMATED 262 10*3/uL (130-400); RED BLOOD COUNT 4.45 10*6/uL (4.10-5.10); RED CELL DISTRI WIDTH 12.2 % (0-14.5)
[2022-11-27 09:52] LABS: ACT PARTIAL THROMBO TIME 27.9 SECONDS (20.0-32.1)
[2022-11-27 10:08] LABS: ALKALINE PHOSPHATASE 125 U/L (46-116); BUN 11 mg/dl (9-23); CHLORIDE 109 mmol/L (98-107); LIPASE 39 U/L (12-53); POTASSIUM 4.1 mmol/L (3.4-5.1); SGPT/ALT 47 U/L (10-49); TOTAL PROTEIN 7.4 gm/dL (6.0-8.0)
[2022-11-27 11:04] LABS: BILIRUBIN Negative (Negative); BLOOD Negative (Negative); CLARITY Clear (Clear); COLOR Yellow (Yellow); GLUCOSE Negative (Negative); KETONE Negative (Negative); LEUKO ESTERASE Negative (Negative); NITRITE Negative (Negative)
[2022-11-27 11:13] LABS: BACTERIA TRACE
== END 2022-11-27 12:59 | disposition home or self-care (01) ==
LOC: ED 08:56
PROVIDERS: Emergency Medicine
DX: M54.50 Low back pain, unspecified (principal); R10.9 Unspecified abdominal pain; Z79.2 Long term (current) use of antibiotics; Z79.899 Other long term (current) drug therapy; Z90.49 Acquired absence of other specified parts of digestive tract; Z90.89 Acquired absence of other organs

== ENCOUNTER 2023-06-20 12:14 | Emergency (ER) | payer OTHER ==
[~2023-06-20] VITALS: Wt 104.3 kg
[2023-06-20 13:35] LABS: BASO % 0.7 % (0.0-1.0); EOS # 0.1 10*3/uL (0.0-0.4); EOS % 2.3 % (1.0-4.0); HEMATOCRIT 40.4 % (37.0-47.0); LYMPH # 2.6 10*3/uL (1.3-4.4); MEAN CELL VOLUME 97.1 fl (81.0-99.0); MEAN CORPUSCULAR HGB 33.4 pg (27.0-31.0); MEAN CORPUSCULAR HGB CONC 34.4 g/dl (33.0-37.0); MEAN PLATELET VOLUME 9.3 fl (9.6-12.3); MONO # 0.6 10*3/uL (0.1-1.0); NEUT # 2.7 10*3/uL (2.3-7.9); NEUT % 44.7 % (47.0-73.0); PLATELET COUNT AUTOMATED 223 10*3/uL (130-400); RED BLOOD COUNT 4.16 10*6/uL (4.10-5.10); RED CELL DISTRI WIDTH 12.5 % (0-14.5); WHITE BLOOD COUNT 6.1 10*3/uL (4.8-10.8)
[2023-06-20 13:52] LABS: ALKALINE PHOSPHATASE 136 U/L (46-116); BUN 9 mg/dl (9-23); CHLORIDE 110 mmol/L (98-107); POTASSIUM 4.8 mmol/L (3.4-5.1); SGPT/ALT 22 U/L (5-49); TOTAL PROTEIN 7.1 gm/dL (6.0-8.0)
[2023-06-20 14:02] LABS: BILIRUBIN Negative (Negative); BLOOD Negative (Negative); CLARITY Clear (Clear); COLOR Yellow (Yellow); GLUCOSE Negative (Negative); KETONE Negative (Negative); LEUKO ESTERASE 1+ (Negative); NITRITE Negative (Negative)
[2023-06-20 14:09] LABS: BACTERIA 2+; MUCOUS TRACE
[2023-06-20] MEDS ORDERED: CIPRO500 MG PO (14:54)
== END 2023-06-20 14:55 | disposition home or self-care (01) ==
LOC: ED 12:14
PROVIDERS: Emergency Medicine; Nurse Practitioner
DX: N39.0 Urinary tract infection, site not specified (principal); R42 Dizziness and giddiness; I10 Essential (primary) hypertension; F32.A Depression, unspecified; K21.9 Gastro-esophageal reflux disease without esophagitis; F41.9 Anxiety disorder, unspecified; Z90.49 Acquired absence of other specified parts of digestive tract; Z90.89 Acquired absence of other organs; Z98.890 Other specified postprocedural states

== ENCOUNTER 2023-10-07 10:33 | Emergency (ER) | payer OTHER ==
[~2023-10-07] VITALS: Ht 167.6 cm; Wt 104.3 kg
[2023-10-07 11:36] LABS: BASO % 0.5 % (0.0-1.0); EOS # 0.2 10*3/uL (0.0-0.4); EOS % 2.7 % (1.0-4.0); HEMATOCRIT 40.7 % (37.0-47.0); LYMPH # 2.5 10*3/uL (1.3-4.4); LYMPH % 43.8 % (27.0-41.0); MEAN CELL VOLUME 99.3 fl (81.0-99.0); MEAN CORPUSCULAR HGB 33.2 pg (27.0-31.0); MEAN CORPUSCULAR HGB CONC 33.4 g/dl (33.0-37.0); MONO # 0.5 10*3/uL (0.1-1.0); MONO % 9.7 % (3.0-9.0); NEUT # 2.4 10*3/uL (2.3-7.9); NEUT % 43.1 % (47.0-73.0); PLATELET COUNT AUTOMATED 230 10*3/uL (130-400); RED CELL DISTRI WIDTH 12.1 % (0-14.5); WHITE BLOOD COUNT 5.6 10*3/uL (4.8-10.8)
[2023-10-07 11:38] LABS: BILIRUBIN Negative (Negative); BLOOD Negative (Negative); CLARITY Clear (Clear); COLOR Yellow (Yellow); GLUCOSE Negative (Negative); KETONE Negative (Negative); LEUKO ESTERASE Negative (Negative); NITRITE Negative (Negative); PH 5.5 (4.5-8.0); SPECIFIC GRAVITY 1.025 (1.001-1.030)
[2023-10-07 11:50] LABS: BACTERIA TRACE; MUCOUS TRACE; RBC 0-2 rbc/hpf (0-2); WBC 0-2 wbc/hpf (0-5)
[2023-10-07 12:02] LABS: ALKALINE PHOSPHATASE 113 U/L (46-116); BUN 12 mg/dl (9-23); CHLORIDE 109 mmol/L (98-107); POTASSIUM 3.9 mmol/L (3.4-5.1); SGPT/ALT 26 U/L (5-49)
[2023-10-07] MEDS ORDERED: Dexamethasone Sodium Phospha 20 MG/5 ML VIAL IV ONE (12:45)
[2023-10-07] MEDS ORDERED: Ketorolac Tromethamine 15 MG/ML VIAL IV ONE (12:50)
[2023-10-07] MEDS ORDERED: MELOXICAM15 MG PO (12:51)
[2023-10-07] MEDS ORDERED: PREDNISONE50 MG PO (12:51)
[2023-10-07] MEDS ORDERED: Dexamethasone Sodium Phospha 20 MG/5 ML VIAL IM ONE (13:10)
[2023-10-07] MEDS ORDERED: Ketorolac Tromethamine 15 MG/ML VIAL IM ONE (13:10)
== END 2023-10-07 13:47 | disposition home or self-care (01) ==
LOC: ED 10:33
PROVIDERS: Internal Medicine
DX: M62.830 Muscle spasm of back (principal); I10 Essential (primary) hypertension; F32.A Depression, unspecified; K21.9 Gastro-esophageal reflux disease without esophagitis; F41.9 Anxiety disorder, unspecified; Z90.49 Acquired absence of other specified parts of digestive tract; Z90.89 Acquired absence of other organs; Z98.890 Other specified postprocedural states; Z87.891 Personal history of nicotine dependence

== ENCOUNTER 2023-10-22 07:55 | Emergency (ER) | payer OTHER ==
[~2023-10-22] VITALS: Ht 167.6 cm; Wt 108.0 kg
[~2023-10-22 07:55] MED LIST changes: +MELOXICAM15 MG PO; +PREDNISONE50 MG PO
[2023-10-22 08:26] LABS: BASO % 0.3 % (0.0-1.0); EOS % 0.5 % (1.0-4.0); HEMATOCRIT 41.4 % (37.0-47.0); LYMPH # 1.4 10*3/uL (1.3-4.4); LYMPH % 18.6 % (27.0-41.0); MEAN CELL VOLUME 100.5 fl (81.0-99.0); MEAN CORPUSCULAR HGB 33.3 pg (27.0-31.0); MEAN CORPUSCULAR HGB CONC 33.1 g/dl (33.0-37.0); MEAN PLATELET VOLUME 9.1 fl (9.6-12.3); MONO # 0.5 10*3/uL (0.1-1.0); MONO % 6.6 % (3.0-9.0); NEUT # 5.4 10*3/uL (2.3-7.9); NEUT % 73.6 % (47.0-73.0); PLATELET COUNT AUTOMATED 228 10*3/uL (130-400); RED BLOOD COUNT 4.12 10*6/uL (4.10-5.10); RED CELL DISTRI WIDTH 12.6 % (0-14.5); WHITE BLOOD COUNT 7.4 10*3/uL (4.8-10.8)
[2023-10-22 08:48] LABS: ALKALINE PHOSPHATASE 109 U/L (46-116); BUN 9 mg/dl (9-23); CHLORIDE 108 mmol/L (98-107); LIPASE 50 U/L (12-53); POTASSIUM 4.1 mmol/L (3.4-5.1); SGPT/ALT 32 U/L (5-49); TOTAL PROTEIN 6.8 gm/dL (6.0-8.0)
[2023-10-22] MEDS ORDERED: ACETAMINOPHEN 325 MG TAB PO ONE (09:50)
[2023-10-22 09:58] LABS: BILIRUBIN Negative (Negative); BLOOD Negative (Negative); CLARITY Cloudy (Clear); COLOR Yellow (Yellow); GLUCOSE Negative (Negative); KETONE Negative (Negative); LEUKO ESTERASE Negative (Negative); NITRITE Negative (Negative); SPECIFIC GRAVITY 1.015 (1.001-1.030)
[2023-10-22 10:04] LABS: PH >= 9.0 (4.5-8.0)
[2023-10-22 10:16] LABS: BACTERIA 1+
[2023-10-22] MEDS ORDERED: VISTARIL25 MG PO (11:43)
== END 2023-10-22 12:42 | disposition home or self-care (01) ==
LOC: ED 07:55
PROVIDERS: Internal Medicine
DX: R07.89 Other chest pain (principal); Z79.899 Other long term (current) drug therapy; Z79.2 Long term (current) use of antibiotics; Z90.49 Acquired absence of other specified parts of digestive tract; Z90.89 Acquired absence of other organs

== ENCOUNTER 2024-09-01 08:19 | Emergency (ER) | payer OTHER ==
[~2024-09-01] VITALS: Ht 167.6 cm; Wt 108.9 kg
[~2024-09-01 08:19] MED LIST changes: +VISTARIL25 MG PO
[2024-09-01] MEDS ORDERED: LIDOCAINE 1 EA PATCH T ONE (08:54)
[2024-09-01] MEDS ORDERED: Ketorolac Tromethamine 15 MG/ML VIAL IM ONE (08:55)
[2024-09-01] MEDS ORDERED: PREDNISONE20 M1 PO (11:38)
[2024-09-01] MEDS ORDERED: METHOCARBAMOL500 M1 PO (11:38)
== END 2024-09-01 11:46 | disposition home or self-care (01) ==
LOC: ED 08:19
DX: M48.061 Spinal stenosis, lumbar region without neurogenic claudication (principal); M51.369 Other intervertebral disc degeneration, lumbar region without mention of lumbar back pain or lower extremity pain; M79.605 Pain in left leg; M25.552 Pain in left hip; I10 Essential (primary) hypertension; F32.A Depression, unspecified; K21.9 Gastro-esophageal reflux disease without esophagitis; F41.9 Anxiety disorder, unspecified; Z90.49 Acquired absence of other specified parts of digestive tract; Z90.89 Acquired absence of other organs; Z98.890 Other specified postprocedural states

== ENCOUNTER 2025-03-30 08:17 | Emergency (ER) | payer OTHER ==
[~2025-03-30] VITALS: Ht 167.6 cm; Wt 104.3 kg
[~2025-03-30 08:17] MED LIST changes: +METHOCARBAMOL500 M1 PO; +PREDNISONE20 M1 PO
[2025-03-30] MEDS ORDERED: KENALOG 0.1%80 GM T (08:34)
[2025-03-30] MEDS ORDERED: PREDNISONE20 M1 PO (08:34)
== END 2025-03-30 08:43 | disposition home or self-care (01) ==
LOC: ED 08:17
DX: L25.9 Unspecified contact dermatitis, unspecified cause (principal); I10 Essential (primary) hypertension; E78.5 Hyperlipidemia, unspecified; Z79.899 Other long term (current) drug therapy; Z90.49 Acquired absence of other specified parts of digestive tract; Z90.89 Acquired absence of other organs